=== PATIENT | female | born 1995 | race American Indian/Alaskan Native ===

== ENCOUNTER 2016-12-19 11:23 | Emergency (ER) | payer SELFPAY ==
[2016-12-19 13:37] LABS: Bilirubin,Urine NEG (Negative); Blood,Urine SM (Negative); Ketones,Urine NEG (Negative); Leukocyte Esterase,Urine LG (Negative); Mucus,Urine 3+ /HPF; Nitrite,Urine NEG (Negative); Urobilinogen,Urine < 2.0 mg/dL (<2.0)
--- NOTE | 2016-12-19 14:47 | Emergency Department Report ---
ED Female HPI - General Chief complaint: Urogenital-Female Stated complaint: ABD PAIN Time Seen by Provider: 12/19/16 14:47 Source: patient Mode of arrival: Ambulatory Limitations: No Limitations - History of Present Illness Initial comments: 21-year-old female presents with complaint of exposure to STD. Patient states she recently tested positive for gonorrhea and was treated at another medical facility within the last week. Patient states she has developed somewhat painful vaginal lesions externally and is complaining of moderate to severe lower abdominal pain/pelvic pain. Patient denies any bleeding is complaining of slightly discolored discharge from vagina. Patient states that she was recently told by one of her sex partners that he tested positive for Chlamydia/ gonorrhea. t is visibly uncomfortable states that the reason she came to the hospital today is because of severe lower abdominal pain MD Complaint: dysuria, pelvic pain, possible STD Onset/Timin -: week(s) Location: perineum, suprapubic Severity: severe Severity scale (0 -10): 8 Quality: sharp, burning Consistency: intermittent Are you Now?: No - Related Data Previous Rx's Medication Instructions Recorded Last Taken Type HYDROcodone/APAP 5-325 [[place] 1 each PO Q6HR PRN #15 tablet 12/19/16 Unknown Rx 5/325] Ibuprofen [Motrin] 600 mg PO Q8H PRN #30 tablet 12/19/16 Unknown Rx RX: Acyclovir [Zovirax Tab] 400 mg PO Q8H #21 tab 12/19/16 Unknown Rx RX: Doxycycline [Vibramycin CAP] 100 mg PO Q12HR #20 capsule 12/19/16 Unknown Rx RX: metroNIDAZOLE [Flagyl TAB] 500 mg PO Q12HR #20 tab 12/19/16 Unknown Rx Allergies Allergy/AdvReac Type Severity Reaction Status Date / Time No Known Allergies Allergy Unverified 12/19/16 11:30 ED Review of Systems ROS: Stated complaint: ABD PAIN Other details as noted in HPI Constitutional: denies: chills, fever Eyes: denies: eye pain, eye discharge, vision change ENT: denies: ear pain, throat pain Respiratory: denies: cough, shortness of breath, wheezing Cardiovascular: denies: chest pain, palpitations Endocrine: no symptoms reported Gastrointestinal: denies: abdominal pain, nausea, diarrhea Genitourinary: discharge. denies: urgency, dysuria Musculoskeletal: denies: back pain, joint swelling, arthralgia Skin: denies: rash, lesions Neurological: denies: headache, weakness, paresthesias Psychiatric: denies: anxiety, depression Hematological/Lymphatic: denies: easy bleeding, easy bruising ED Past Medical Hx - Past Medical History Previous Medical History?: Yes - Surgical History Past Surgical History?: No - Social History Smoking Status: Never Smoker Substance Use Type: Alcohol, Marijuana, Prescribed - Medications Home Medications: Home Medications Medication Instructions Recorded Confirmed Last Taken Type HYDROcodone/APAP 5-325 [[place] 1 each PO Q6HR PRN #15 tablet 12/19/16 Unknown Rx 5/325] Ibuprofen [Motrin] 600 mg PO Q8H PRN #30 tablet 12/19/16 Unknown Rx RX: Acyclovir [Zovirax Tab] 400 mg PO Q8H #21 tab 12/19/16 Unknown Rx RX: Doxycycline [Vibramycin CAP] 100 mg PO Q12HR #20 capsule 12/19/16 Unknown Rx RX: metroNIDAZOLE [Flagyl TAB] 500 mg PO Q12HR #20 tab 12/19/16 Unknown Rx ED Physical Exam - General Limitations: No Limitations General appearance: alert, in no apparent distress - Head Head exam: Present: atraumatic, normocephalic - Eye Eye exam: Present: normal appearance, PERRL, EOMI - ENT ENT exam: Present: mucous membranes moist - Neck Neck exam: Present: normal inspection - Respiratory Respiratory exam: Present: normal lung sounds bilaterally. Absent: respiratory distress - Cardiovascular Cardiovascular Exam: Present: regular rate, normal rhythm. Absent: systolic murmur, diastolic murmur, rubs, gallop - GI/Abdominal GI/Abdominal exam: Present: soft, tenderness (RLQ tenderness on exam), normal bowel sounds - External exam: Present: lesions ([id number] erythematous lesions externally suggestive of herpes) Speculum exam: Present: vaginal discharge, cervical discharge Bi-manual exam: Present: cervical motion tendernes (+ CMT on exam and right sided adnexal pain mild) - Extremities Exam Extremities exam: Present: normal inspection - Back Exam Back exam: Present: normal inspection - Neurological Exam Neurological exam: Present: alert, oriented X3, CN II-XII intact, normal gait - Psychiatric Psychiatric exam: Present: normal affect, normal mood - Skin Skin exam: Present: warm, dry, intact, normal color. Absent: rash ED Course Vital Signs 12/19/16 12/19/16 11:30 17:19 Temperature 99.2 F 98.6 F Pulse Rate 122 H 90 Respiratory 18 22 Rate Blood Pressure 108/69 Blood Pressure 106/67 [Left] O2 Sat by Pulse 100 100 Oximetry ED Medical Decision Making - Lab Data Result diagrams: 12/19/16 15:13 12/19/16 15:13 - Medical Decision Making A/P: Pelvic inflammatory disease 1-patient tested positive for gonorrhea, pelvic exam showed severe cervical motion tenderness and right sided adnexal pain. CT scan of abdomen and pelvis and ultrasound did not show any acute intra-abdominal pathology, no appendicitis noted ovarian abscess Doppler to right ovary shows normal flow. 2-case discussed with attending Dr. Thomas before discharge 3-patient treated empirically for PID with azithromycin and ceftriaxone. As per the attending I will add on doxycycline and metronidazole or coverage of PID and give patient [employer] follow-up 4-Motrin when necessary for pain, short course of [place] when necessary for pain 5- for patient's primary care she does not currently have a primary care doctor Critical care attestation.: If time is entered above; I have spent that time in minutes in the direct care of this critically ill patient, excluding procedure time. ED Disposition Clinical Impression: PID (acute pelvic inflammatory disease) Disposition: DISCHARGED TO HOME OR SELFCARE Is pt being admited?: No Does the pt Need Aspirin: No Condition: Stable Instructions: Pelvic Inflammatory Disease (ED), Cervicitis (ED), Genital Herpes Simplex (ED) Prescriptions: RX: Acyclovir [Zovirax Tab] 400 mg PO Q8H #21 tab RX: Doxycycline [Vibramycin CAP] 100 mg PO Q12HR #20 capsule HYDROcodone/APAP 5-325 [[place] 5/325] 1 each PO Q6HR PRN #15 tablet PRN Reason: Pain Ibuprofen [Motrin] 600 mg PO Q8H PRN #30 tablet PRN Reason: Pain RX: metroNIDAZOLE [Flagyl TAB] 500 mg PO Q12HR #20 tab Referrals: [facility] [Outside] - 3-5 Days [facility] [Provider Group] - 3-5 Days Forms: Work/School Release Form(ED) Time of Disposition: 19:11
[2016-12-19] MEDS ORDERED: TORADOL IV ONE (15:14)
[2016-12-19] MEDS ORDERED: NACL 0.9% 1000 ML 1,000 ML IV ONE (15:14)
[2016-12-19] MEDS ORDERED: ZITHROMAX PO ONE (15:29)
[2016-12-19] MEDS ORDERED: ROCEPHIN/NS 1 GM/50 ML 1 GM/50 ML BAG IV ONE (15:29)
[2016-12-19] MEDS ORDERED: MORPHINE ONE (15:31)
[2016-12-19] MEDS ORDERED: ZOFRAN ONE (15:31)
[2016-12-19] MEDS ORDERED: ZOFRAN IV ONE (15:31)
[2016-12-19] MEDS ORDERED: MORPHINE IV ONE (15:31)
[2016-12-19 15:44] LABS: Anion Gap 19 mmol/L; BUN/Creatinine Ratio 11.42; Blood Urea Nitrogen 8 mg/dL (7-17); Calcium 8.6 mg/dL (8.4-10.2); Carbon Dioxide 24 mmol/L (22-30); Chloride 99.6 mmol/L (98-107); Glucose 86 mg/dL (65-100); Potassium 4.1 mmol/L (3.6-5.0); Sodium 138 mmol/L (137-145)
[2016-12-19 15:50] LABS: Basophils % (Auto) 0.4 % (0.0-1.8); Eosinophils % (Auto) 0.1 % (0.0-4.3); Hemoglobin 12.8 gm/dl (10.1-14.3); Mean Corpuscular HGB Conc 33 % (30-34); Mean Corpuscular Hemoglobin 28 pg (28-32); Mean Corpuscular Volume 86 fl (79-97); Platelet Count 233 K/mm3 (140-440); Red Blood Count 4.54 M/mm3 (3.65-5.03); White Blood Count 5.6 K/mm3 (4.5-11.0)
[2016-12-19 15:59] LABS: Alanine Aminotransferase 11 units/L (7-56); Albumin 4.1 g/dL (3.9-5); Albumin/Globulin Ratio 1.1 %; Alkaline Phosphatase 65 units/L (35-129); Bilirubin,Direct < 0.2 mg/dL (0-0.2); Bilirubin,Total 0.2 mg/dL (0.1-1.2); Total Protein 7.7 g/dL (6.3-8.2)
--- NOTE | 2016-12-19 16:37 | Ultrasound Report ---
Transabdominal pelvic ultrasound with Doppler interrogation. History: Pelvic pain. Findings: The study is limited do to patient refusal to allow a transvaginal study. The abdominal study demonstrates normal sized uterus with no focal abnormality. The endometrial echo measures 9 mm in thickness. The ovaries appear normal in size and configuration. Doppler interrogation demonstrates normal flow to each ovary. No fluid is seen within the cul-de-sac. Impression: Negative transabdominal pelvic ultrasound.
[2016-12-19 17:20] VITALS: BP 106/67
[2016-12-19] MEDS ORDERED: NACL ONE (17:39)
--- NOTE | 2016-12-19 18:50 | Cat Scan Report ---
FINAL REPORT PROCEDURE: CT ABDOMEN PELVIS W CON TECHNIQUE: Computerized axial tomography of the abdomen and pelvis was performed after the IV injection of iodinated nonionic contrast. HISTORY: RLQ pain ? appy COMPARISON: No prior studies are available for comparison. FINDINGS: Lower Lung jefferson: No sinificant abnormality seen. Upper Abdomen: The liver, the gallbladder, the pancreas and the adrenal glands are unremarkable. Kidneys, Ureters and Urinary bladder: No abnormalities are seen Retroperitoneum: Abdominal aorta appears normal. Nonspecific subcentimeter lymph nodes are seen in the retroperitoneum. No pathologically enlarged lymph nodes are identified. Bowel: No bowel abnormalities are seen. There is no evidence of bowel obstruction or ascites. There is no free intraperitoneal gas. The appendix appears to be filled with oral contrast and shows no focal abnormality. Reproductive organs: No focal uterine or ovarian abnormalities are identified however appears to be mild edematous change seen in the pelvic adipose tissue posteriorly adjacent to the uterus and ovaries. I do not see an abscess. I cannot exclude early pelvic inflammatory disease. Other: None IMPRESSION: Edematous changes are seen in the lower pelvis posteriorly. I cannot exclude early changes of pelvic inflammatory disease. No other abnormalities are seen. Normal-appearing appendix appears to be visualized in the right lower quadrant directed superiorly.
== END 2016-12-19 19:45 | disposition home or self-care (01) ==
LOC: ED 11:23
DX: N73.0 Acute parametritis and pelvic cellulitis (principal); F12.90 Cannabis use, unspecified, uncomplicated
CPT/HCPCS: 36415; 74177; 80048; 80074; 81001; 81025; 82140; 85025; 87086; 87210; 87255; 87591; 93975; 96361; 96374; 96375; 99285; J0696; J1885; J2270; J2405; J7030; Q9967